=== PATIENT | female | born 1940 | race Caucasian/White ===

== ENCOUNTER 2017-02-28 07:15 | Inpatient (IN) | payer OTHER ==
[~2017-02-28] VITALS: Ht 160 cm; Wt 52.2 kg
[~2017-02-28 07:15] MED LIST: AMBIEN 5 MG TABL5 M1 PO; AMITIZA 24 MCG24 MC1 PO; ASPIR 8181 MG PO; BONIVA150 MG PO; CARAFATE1 GM/10 ML PO; GABAPENTIN 100100 MG PO; LASIX 20 MG TAB20 MG PO; LORCET PLUS 7.1 EACH PO; MACRODANTIN100 MG PO; MIRALAX17 GM PO; MS CONTIN15 MG PO; MYRBETRIQ25 MG PO; OMEPRAZOLE40 MG PO; PRINIVIL20 MG PO; PROTONIX40 M1 PO; SIMVASTATIN40 MG PO; VITAMIN D1000 UNI1 PO; ZANTAC 150MG T150 MG PO; ZOFRAN ODT4 MG DISSOLVE
[2017-02-28 07:17] VITALS: BP 152/50
[2017-02-28] MEDS ORDERED: POTASSIUM20 PO (07:24)
[2017-02-28] MEDS ORDERED: PREMARIN30 GM TOP (07:24)
[2017-02-28] MEDS ORDERED: TRIAMCINOLONE A80 G2 TOP (07:24)
[2017-02-28] MEDS ORDERED: VITAMIN D1000 UNI1 PO (07:25)
[2017-02-28] MEDS ORDERED: BISMATROL262 MG/15 PO (07:25)
[2017-02-28 07:48] LABS: URINE BILIRUBIN NEGATIVE (Negative); URINE BLOOD 2+ (Negative); URINE CLARITY SL CLOUDY; URINE COLOR YELLOW; URINE GLUCOSE-RANDOM NEGATIVE (Negative); URINE KETONES NEGATIVE (Negative); URINE PROTEIN 1+ (Negative); URINE SPECIFIC GRAVITY 1.015 (1.005-1.030); URINE UROBILINOGEN 0.2 E.U./dl (0.2-1.0)
[2017-02-28 08:02] LABS: URINE LEUKOCYTES-REFLEX 2+ (Negative); URINE NITRITE-REFLEX POSITIVE (Negative)
[2017-02-28 08:04] LABS: CASTS None Seen /LPF (None Seen); CRYSTALS None Seen /LPF (None Seen); SQUAMOUS NONE SEEN /LPF (0-3); URINE RBC 0-2 Rare /HPF (0-2); URINE WBC-REFLEX >25 Many /HPF (0-5)
[2017-02-28 08:15] LABS: ABSOLUTE BASOPHILS 0.1 thou/uL (0.0-0.2); ABSOLUTE EOSINOPHILS 0.9 thou/uL (0.0-0.7); ABSOLUTE LYMPHOCYTES 1.2 thou/uL (0.8-5.3); ABSOLUTE MONOCYTES 0.9 thou/uL (0.0-1.2); ABSOLUTE NEUTROPHILS 8.4 thou/uL (1.6-8.1); BASOPHILS 1.2 %; HEMATOCRIT 38.2 % (37.0-47.0); HEMOGLOBIN 12.2 gm/dL (12.0-15.0); LYMPHOCYTES 10.2 %; MCH 31.1 pg (26.0-34.0); MCHC 31.8 g/dL (28.0-37.0); MCV 97.7 fL (80.0-100.0); MONOCYTES 7.9 %; MPV 7.2 fl. (7.2-11.1); NUCLEATED RBCS 0 /100WBC; PLATELET COUNT* 230 thou/uL (150-400); POLYS 72.7 %; RBC 3.91 mil/uL (4.20-5.00); RDW-CV 13.1 % (10.5-14.5); WBC 11.5 thou/uL (4.0-11.0)
[2017-02-28 08:24] LABS: ANION GAP 4 mmol/L (7-16); BUN 14 mg/dL (7-18); CALCIUM 8.2 mg/dL (8.5-10.1); CHLORIDE 107 mmol/L (98-107); CO2 33 mmol/L (21-32); CREATININE 0.9 mg/dL (0.6-1.3); GLUCOSE 103 mg/dL (70-99); POTASSIUM 4.2 mmol/L (3.5-5.1); SODIUM 144 mmol/L (136-145)
[2017-02-28 08:30] LABS: ALBUMIN 3.3 g/dL (3.4-5.0); ALKALINE PHOSPHATASE 96 U/L (46-116); LIPASE 252 U/L (73-393); SGOT 15 U/L (15-37); SGPT 19 U/L (30-65); TOTAL BILIRUBIN 0.2 mg/dL (<0.1-1.0); TOTAL PROTEIN 6.4 g/dL (6.4-8.2); TROPONIN-I LEVEL <0.06 ng/mL (<0.06)
[2017-02-28 14:35] VITALS: BP 122/50
[2017-02-28 15:00] VITALS: BP 147/51
--- NOTE | 2017-02-28 17:21 | NUR ---
PATIENT ARRIVED FROM ER THIS AFTERNOON. PATIENT SETTLED TO BED. HISTORY, ASSESSMENT AND VITALS COMPLETED AND DOCUMENTED. PATIENT HAS CELLULITIS TO LEFT LOWER EXTREMITY, PICTURE IN CHART. PATIENT IS SLEEPING AT THIS TIME. BED ALARM ON. CALL LIGHT WITHIN REACH. WILL CONTINUE TO MONITOR.
[2017-02-28 20:10] VITALS: BP 140/65
[2017-03-01 00:04] VITALS: BP 148/62
--- NOTE | 2017-03-01 05:49 | NUR ---
PT SLEPT AT INTERVALS DURING THE NIGHT, BOSS IN PLACE, PT CONFUSED AT TIMES REGARDING SITUATION AND TIME. PT REORIENTED AND DISCUSSED PLAN OF CARE. PRN AND SCHEDULED PAIN MEDICATIONS GIVEN, HEATING PAD ORDERED THIS AM FOR BACK PAIN PER PT REQUEST, CALL LIGHT IN REACH, BED ALARM ON FOR SAFETY, WILL CONTINUE TO MONITOR
[2017-03-01 08:25] VITALS: BP 170/70
--- NOTE | 2017-03-01 12:12 | NUR ---
SW met with pt to complete initial assessment. SW introduced self and SW role. Pt alert and oriented; pt forgetful. Pt was initially covering her face with the sheets and blanket but uncovered her head and spoke with SW and was pleasant. Pt anticipates to be able to dc back to her [facility] in [place] upon dc. Pt has a 4 ww with a seat. Pt was concerned with getting pain medication and "gas" medication and SW relayed message to nurse who already provided medications as scheduled. Pt has a dtr, Altagracia, who is involved with pt care. SW to continue to follow to assist with safe dc planning.
--- NOTE | 2017-03-01 13:08 | EKG ---
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 : 1940 Requested By: Leandro Covington Order Number: [id number] MD: Sebastian Dunham Measurements Intervals [place] Rate: 64 P: 50 GA: 140 QRS: -27 QRSD: 91 T: 20 QT: 388 QTc: 401 Interpretive Statements Sinus rhythm Probable left atrial enlargement Borderline left axis deviation Borderline T wave abnormalities Compared to ECG 12/10/2016 11:24:44 T-wave abnormality now present Electronically Signed On 03-01-2017 13:08:19 SAFETY CONSULTANT by Sebastian Dunham [email or web address] <ELECTRONICALLY SIGNED> By: Sebastian Dunham MD, [facility] 03/01/17 1308 0745 0745 Sebastian Dunham MD, [facility] /EPI
--- NOTE | 2017-03-01 13:52 | 2DMMODE ---
[place] [address] 2 D/M-MODE ECHOCARDIOGRAM Name: ARNULFO BAUTISTA Room: [address] IN [facility]#: [id number] Admission: 02/28/17 Attend Phys: Dandy Harris Discharge: Date of : 36 Date of Service: 03/01/17 1352 Report #: [id number] THIS REPORT FOR: //name// APPROVED REPORT Study performed: 03/01/2017 11:21:55 EXAM: Comprehensive 2D, Doppler, and color-flow Echocardiogram Patient Location: In-Patient Room #: 310 Status: routine BSA: 1.71 HR: 53 bpm BP: 170/70 mmHg Other Information Study Quality: Good Indications Murmur 2D Dimensions LVEF(%): 81.98 (>50%) IVSd: 11.52 (7-11mm) LVOT Diam: 20.60 (18-24mm) LVDd: 44.55 mm PWd: 10.97 (7-11mm) Ascending Ao: 26.95 (22-36mm) LVDs: 22.04 (25-40mm) Aortic Root: 28.56 mm Martins's LVEF: 81.98 % Volumes Left Atrial Volume (Systole) LA ESV Index: 19.00 mL/m2 Aortic Valve AoV Peak Marvin.: 3.20 m/s AO Peak Gr.: 40.86 mmHg LVOT Max P.34 mmHg AO Mean Gr.: 24.80 mmHg LVOT Mean P.78 mmHg LVOT Max V: 0.91 m/s AO V2 VTI: 84.43 cm LVOT Mean V: 0.62 m/s VINI (VTI): 0.98 cm2 LVOT V1 VTI: 24.74 cm Mitral Valve E/A Ratio: 0.87 MV Decel. Time: 188.55 [place] [address] 2 D/M-MODE ECHOCARDIOGRAM Name: ARNULFO BAUTISTA Room: [address] IN .R.#: [id number] Admission: 02/28/17 Attend Phys: Dandy Harris Discharge: Date of : 36 Date of Service: 03/01/17 1352 Report #: [id number] MV E Max Marvin.: 0.94 m/s MV PHT: 54.68 ms MVA (PHT): 4.02 cm2 TDI E/Lateral E': 15.67 E/Medial E': 13.43 Medial E' Marvin.: 0.07 m/s Lateral E' Marvin.: 0.06 m/s Pulmonary Valve PV Peak Marvin.: 1.04 m/s PV Peak Gr.: 4.29 mmHg Tricuspid Valve TR Peak Gr.: 12.56 mmHg RVSP: 17.56 mmHg Left Ventricle The left ventricle is normal size. There is normal LV segmental wall motion. Moderate concentric left ventricular hypertrophy. Left ventricular systolic function is normal. The left ventricular ejection fraction is within the normal range. LVEF is >70%. Grade I - abnormal relaxation pattern. Right Ventricle The right ventricle is normal size. The right ventricular systolic function is normal. Atria Left atrium is moderately dilated. The right atrium size is normal. Aortic Valve Aortic valve is moderately calcified.Restricted leaflet motion.Appears trileaflet. No aortic regurgitation is present. Moderate aortic stenosis. Mitral Valve The mitral valve is normal in structure. There is no mitral valve regurgitation noted. No evidence of mitral valve stenosis. Tricuspid Valve The tricuspid valve is normal in structure. Trace tricuspid regurgitation. The RVSP is __17.6 mmHg. Pulmonic Valve The pulmonary valve is normal in structure. [place] [address] 2 D/M-MODE ECHOCARDIOGRAM Name: ARNULFO BAUTISTA Room: [address] IN M.R.#: [id number] Admission: 02/28/17 Attend Phys: Dandy Harris Discharge: Date of : 36 Date of Service: 03/01/17 1352 Report #: [id number] Great Vessels The aortic root is normal in size. IVC is normal in size and collapses with >50% inspiration Pericardium There is no pericardial effusion. <Conclusion> LVEF is >70%. Moderate aortic stenosis. No aortic regurgitation is present. Moderate concentric left ventricular hypertrophy. There is normal LV segmental wall motion. Left atrium is moderately dilated. <ELECTRONICALLY SIGNED> By: Sebastian Dunham MD, FACC 03/01/17 1352 1352 135 Sebastian Dunham MD, FACC /INF
[2017-03-01 15:45] VITALS: BP 172/55
--- NOTE | 2017-03-01 19:24 | NUR ---
PATIENT HAS BEEN A/O X 4, SLIGHTLY FORGETFUL AT TIMES. MEDICATED FOR GENERALIZED PAIN WITH EFFECT. SEEN BY DR OSEGUERA TODAY. BOSS PATENT AND DRAINING. CONTINUES ON IV ANTIBIOTICS AND IV FLUIDS. UP IN CHAIR THIS MORNING. PATIENT'S LEFT LOWER LEG REMAINS RED, CREAMS APPLIED AND ENCOURAGED TO ELEVATE WHILE IN BED. PATIENT'S DAUGHTER UPDATED ON PLAN OF CARE. FALL PRECAUTIONS IN PLACE. BED ALARM IN PLACE. CALL LIGHT WITHIN REACH. WILL CONTINUE WITH PLAN OF CARE.
[2017-03-02 00:34] VITALS: BP 151/51
[2017-03-02 04:18] VITALS: BP 180/77
--- NOTE | 2017-03-02 06:14 | NUR ---
PT SLEPT MOST OF SHIFT. ASSESSMENT DOCUMENTED. MEDS GIVEN PER E-MAR. IV PATENT, FLUIDS INFUSING. PT BECAME MORE CONFUSED SHIFT PROGRESSED. PAIN MEDS GIVEN PER E-MAR. NO CONCERNS AT THIS TIME, WILL CONTINUE TO MONITOR.
[2017-03-02 08:45] VITALS: BP 180/72
[2017-03-02 11:05] VITALS: BP 180/72
[2017-03-02] MEDS ORDERED: BACTRIM DS TAB1 EACH PO (13:01)
--- NOTE | 2017-03-02 13:40 | NUR ---
ORDERS RECEIVED FOR DC BACK TO [facility]. SPOKE WITH [facility], THEY WILL ACCEPT BACK AND GET PT'S MEDS FILLED. ORDERS FAXED TO HER AT [phone]. RN HAS NUMBER TO CALL REPORT. SON TO TRANSPORT
[2017-03-02] MEDS ORDERED: RIFAMPIN 300 M300 M1 PO (13:55)
--- NOTE | 2017-03-02 14:17 | NUR ---
DR. AMBRIZ NOTIFIED THAT THIS AM PATIENTS BP WAS ELEVATED AND REMAINED ELEVATED THIS AFTERNOON PRIOR TO DC. SCRIPT WRITTEN TO INCREASE LISINOPRIL. MRSA NOTED TO URINE, ABX SCRIPT GIVEN. LEG BAG TEACHING GIVEN. IV DC'D. ALL BELONGINGS SENT WITH PATIENT. REPORT CALLED TO [facility] AT [facility].
== END 2017-03-02 14:22 | DRG 603 ==
LOC: M.ERS 07:15 → M.TBA-ER 09:46 → M.3W 09:46
PROVIDERS: Emergency Medicine Emergency Medical Services; ADMIT Internal Medicine
DX: L03.116 Cellulitis of left lower limb (principal); N39.0 Urinary tract infection, site not specified; A46 Erysipelas; N81.4 Uterovaginal prolapse, unspecified; M06.9 Rheumatoid arthritis, unspecified; K59.00 Constipation, unspecified; R33.9 Retention of urine, unspecified; Z90.49 Acquired absence of other specified parts of digestive tract; Z88.2 Allergy status to sulfonamides; Z91.040 Latex allergy status

== ENCOUNTER 2017-06-17 07:16 | Inpatient (IN) | payer OTHER ==
[~2017-06-17] VITALS: Ht 160 cm; Wt 48.5 kg
[~2017-06-17 07:16] MED LIST changes: +BACTRIM DS TAB1 EACH PO; +BISMATROL262 MG/15 PO; +POTASSIUM20 PO; +PREMARIN30 GM TOP; +RIFAMPIN 300 M300 M1 PO; +TRIAMCINOLONE A80 G2 TOP
[2017-06-17 07:19] VITALS: BP 132/45
[2017-06-17] MEDS ORDERED: IBANDRONATE SO150 MG PO (07:32)
[2017-06-17] MEDS ORDERED: HYDROCODONE-AP1 EAC6 PO (07:38)
[2017-06-17] MEDS ORDERED: IMODIUM A-D2 M1 PO (07:39)
[2017-06-17 07:55] LABS: URINE BILIRUBIN NEGATIVE (Negative); URINE BLOOD 1+ (Negative); URINE CLARITY CLEAR; URINE COLOR YELLOW; URINE GLUCOSE-RANDOM NEGATIVE (Negative); URINE KETONES NEGATIVE (Negative); URINE LEUKOCYTES-REFLEX NEGATIVE (Negative); URINE NITRITE-REFLEX NEGATIVE (Negative); URINE PROTEIN TRACE (Negative); URINE SPECIFIC GRAVITY 1.025 (1.005-1.030); URINE UROBILINOGEN 0.2 E.U./dl (0.2-1.0)
[2017-06-17 08:12] LABS: BACTERIA-REFLEX None Seen /HPF (None Seen); CASTS None Seen /LPF (None Seen); CRYSTALS None Seen /LPF (None Seen); MUCUS None Seen strn/LPF (None Seen); SQUAMOUS 4-10 Moderate /LPF (0-3); URINE RBC 3-10 Few /HPF (0-2); URINE WBC-REFLEX 0-5 Rare /HPF (0-5)
[2017-06-17 08:42] LABS: HEMATOCRIT 40.1 % (37.0-47.0); HEMOGLOBIN 13.3 gm/dL (12.0-15.0); MCH 31.6 pg (26.0-34.0); MCHC 33.2 g/dL (28.0-37.0); MPV 7.3 fl. (7.2-11.1); NUCLEATED RBCS 0 /100WBC; PLATELET COUNT* 239 thou/uL (150-400); RBC 4.22 mil/uL (4.20-5.00); RDW-CV 14.3 % (10.5-14.5); WBC 19.3 thou/uL (4.0-11.0)
[2017-06-17 08:43] LABS: CALCIUM 8.7 mg/dL (8.5-10.1); CREATININE 1.3 mg/dL (0.6-1.3); POTASSIUM 4.6 mmol/L (3.5-5.1)
[2017-06-17 08:48] LABS: ALBUMIN 3.2 g/dL (3.4-5.0); TOTAL BILIRUBIN 0.4 mg/dL (<0.1-1.0); TOTAL PROTEIN 6.5 g/dL (6.4-8.2)
[2017-06-17 09:12] LABS: ABSOLUTE LYMPHOCYTES 1.2 thou/uL (0.8-5.3); ABSOLUTE MONOCYTES 0.2 thou/uL (0.0-1.2); ABSOLUTE NEUTROPHILS 17.9 thou/uL (1.6-8.1); PLATELET ESTIMATE ADEQUATE
[2017-06-17 14:14] VITALS: BP 107/44
[2017-06-17 14:40] VITALS: BP 123/40
[2017-06-17] MEDS ORDERED: AMITIZA 24 MCG24 MC1 PO (15:55)
[2017-06-18 00:29] VITALS: BP 107/53
[2017-06-18 01:05] LABS: URINE BILIRUBIN NEGATIVE (Negative); URINE BLOOD 1+ (Negative); URINE CLARITY CLEAR; URINE COLOR YELLOW; URINE GLUCOSE-RANDOM NEGATIVE (Negative); URINE KETONES NEGATIVE (Negative); URINE LEUKOCYTES-REFLEX NEGATIVE (Negative); URINE PROTEIN NEGATIVE (Negative); URINE SPECIFIC GRAVITY 1.025 (1.005-1.030); URINE UROBILINOGEN 0.2 E.U./dl (0.2-1.0)
[2017-06-18 01:06] LABS: URINE NITRITE-REFLEX POSITIVE (Negative)
[2017-06-18 01:51] LABS: BACTERIA-REFLEX >30 Many /HPF (None Seen); CASTS None Seen /LPF (None Seen); MUCUS 4-6 Moderate strn/LPF (None Seen); SQUAMOUS 0-3 Few /LPF (0-3); URINE RBC 3-10 Few /HPF (0-2); URINE WBC-REFLEX 6-15 Few /HPF (0-5)
[2017-06-18 01:52] LABS: CRYSTALS None Seen /LPF (None Seen)
[2017-06-18 03:16] VITALS: BP 107/53
[2017-06-18 04:24] LABS: HEMATOCRIT 38.8 % (37.0-47.0); HEMOGLOBIN 12.6 gm/dL (12.0-15.0); MCH 31.2 pg (26.0-34.0); MCHC 32.5 g/dL (28.0-37.0); MPV 7.2 fl. (7.2-11.1); RBC 4.04 mil/uL (4.20-5.00); RDW-CV 14.6 % (10.5-14.5)
[2017-06-18 04:50] LABS: ALBUMIN 2.9 g/dL (3.4-5.0); CALCIUM 8.6 mg/dL (8.5-10.1); CREATININE 0.8 mg/dL (0.6-1.3); MAGNESIUM 2.2 mg/dL (1.8-2.4); POTASSIUM 3.9 mmol/L (3.5-5.1); TOTAL BILIRUBIN 0.4 mg/dL (<0.1-1.0)
[2017-06-18 06:12] VITALS: BP 143/61
[2017-06-18 16:00] VITALS: BP 111/47
--- NOTE | 2017-06-18 17:21 | EKG ---
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: Hillary VENTURA : 1940 Requested By: Ajit Valladares Order Number: [id number] MD: Braulio Turk Measurements Intervals [place] Rate: 81 P: 42 [place]: 133 QRS: -35 QRSD: 84 T: 88 QT: 355 QTc: 412 Interpretive Statements Sinus rhythm Left axis deviation Abnormal R-wave progression, late transition Borderline T wave abnormalities Compared to ECG 02/28/2017 07:45:54 No significant changes Electronically Signed On 06-18-2017 17:21:05 CDT by Braulio Turk [email or web address] <ELECTRONICALLY SIGNED> By: Braulio Turk MD, FACC 06/18/17 1721 0744 0744 Braulio Turk MD, FAC /EPI
[2017-06-19 00:02] VITALS: BP 102/57
[2017-06-19 03:52] LABS: HEMATOCRIT 34.2 % (37.0-47.0); HEMOGLOBIN 11.1 gm/dL (12.0-15.0); MCH 31.4 pg (26.0-34.0); MCHC 32.4 g/dL (28.0-37.0); MCV 96.8 fL (80.0-100.0); MPV 7.1 fl. (7.2-11.1); RBC 3.53 mil/uL (4.20-5.00); RDW-CV 14.3 % (10.5-14.5); WBC 16.7 thou/uL (4.0-11.0)
[2017-06-19 04:08] LABS: CALCIUM 8.3 mg/dL (8.5-10.1); CREATININE 0.8 mg/dL (0.6-1.3); MAGNESIUM 2.1 mg/dL (1.8-2.4); POTASSIUM 3.8 mmol/L (3.5-5.1)
[2017-06-19 07:50] VITALS: BP 174/89
[2017-06-19 16:00] VITALS: BP 146/63
[2017-06-19 23:42] VITALS: BP 151/59
[2017-06-20 00:19] VITALS: BP 141/84
[2017-06-20 04:16] LABS: HEMATOCRIT 32.9 % (37.0-47.0); HEMOGLOBIN 10.8 gm/dL (12.0-15.0); MCH 31.2 pg (26.0-34.0); MCHC 32.7 g/dL (28.0-37.0); MCV 95.2 fL (80.0-100.0); MPV 7.1 fl. (7.2-11.1); RBC 3.46 mil/uL (4.20-5.00); RDW-CV 14.1 % (10.5-14.5); WBC 9.8 thou/uL (4.0-11.0)
[2017-06-20 04:39] LABS: CALCIUM 8.4 mg/dL (8.5-10.1); CREATININE 0.8 mg/dL (0.6-1.3); MAGNESIUM 1.9 mg/dL (1.8-2.4); POTASSIUM 3.4 mmol/L (3.5-5.1)
[2017-06-20 09:00] VITALS: BP 153/58
--- NOTE | 2017-06-20 15:01 | CON ---
[address] [address] CONSULTATION Name: ARNULFO BAUTISTA Room: [address]#: [id number] Admission: 06/17/17 Attend Phys: Nile Portillo, Discharge: Date of : 36 Report #: [id number] THIS REPORT FOR: //name// CC: Ji Portillo DATE OF SERVICE: 06/18/2017 REQUESTING PHYSICIAN: Dr. Nile Portillo. HISTORY OF PRESENT ILLNESS: This is a 76-year-old female with multiple medical problems who lives in a retirement. The patient has been having diffuse abdominal pain and diarrhea for 5-6 days. She also has been complaining of pain in the arms and hands. She denies any upper GI symptoms as she denies nausea, vomiting, dyspepsia, GERD. She also denies any hematochezia or melena. PAST MEDICAL HISTORY: Significant for history of hypertension, dyslipidemia, carotid artery stenosis, GERD, osteoporosis, DJD, depression, chronic constipation, acute cystitis. ALLERGIES: SIGNIFICANT TO SULFA, BETA BLOCKERS AND LATEX. MEDICATIONS: Please refer to hospital MAR. SOCIAL HISTORY: The patient lives at the retirement. Currently, denies any alcohol or tobacco use. FAMILY HISTORY: Noncontributory. PHYSICAL EXAMINATION: VITAL SIGNS: Reveals blood pressure of 143/61, respirations 17, pulse 91, temperature of 100.6. LUNGS: Decreased breath sounds at the bases, but clear otherwise. CARDIOVASCULAR: Regular rate. ABDOMEN: Soft, tender to palpation in the left lower and right lower quadrant. Bowel sounds are positive. NEUROLOGIC: The patient is alert, oriented and able to answer questions. LABORATORY DATA: Reveal sodium of 142, potassium 3.9, BUN is 20, creatinine 0.8. Lipase is 67. Liver function tests are all within normal limit. Alkaline phosphatase is mildly elevated to 120. WBC is 21,000, hemoglobin 12.6 with platelets of 210. The patient also has evidence of [place] [address] CONSULTATION Name: ARNULFO BAUTISTA Room: [address] IN [facility]#: [id number] Admission: 06/17/17 Attend Phys: Nile Portillo, Discharge: Date of : 38 Report #: [id number] IMAGING: CT of abdomen and pelvis was obtained on admission. This is significant for pancolitis with diffuse circumferential mural thickening and mild pericolonic inflammation limited to the pericecal region. There is also a right adnexal cyst measuring 3.9 x 4.8 cm. There is a small right indirect inguinal hernia, which is fat containing. ASSESSMENT AND PLAN: The patient with leukocytosis, diarrhea x 5-6 days and abdominal pain who has imaging suggestive of pancolitis. She has been started on vancomycin and ciprofloxacin. C. diff status pending. We will consider colonoscopy with biopsies of the colonic mucosa to find etiology of her symptoms. The patient is agreeable with plan. <ELECTRONICALLY SIGNED> By: Ari Marcial MD 06/20/17 1501 0954 [id number] Marcial MD /nt
[2017-06-20 16:00] VITALS: BP 188/68
[2017-06-21 00:19] VITALS: BP 183/77
[2017-06-21 08:45] VITALS: BP 186/73
[2017-06-21 15:50] VITALS: BP 152/89
[2017-06-21 21:15] VITALS: BP 168/65
[2017-06-22 08:05] VITALS: BP 146/78
--- NOTE | 2017-06-22 11:50 | CON ---
[address] [address] CONSULTATION Name: ARNULFO BAUTISTA Room: [address] IN [place]risten.#: [id number] Admission: 06/17/17 Attend Phys: Nile Portillo, Discharge: Date of : 36 Report #: [id number] THIS REPORT FOR: //name// CC: Ji Portillo DATE OF SERVICE: 06/21/2017 INFECTIOUS DISEASE CONSULTATION ATTENDING PHYSICIAN: Dr. Monteiro. REASON FOR EVALUATION: C. diff colitis. HISTORY OF PRESENT ILLNESS: Chart reviewed, patient examined. This is a 76-year-old with history of vasculopathy admitted with diarrhea. She noted roughly 8 days ago, it started somewhat abruptly, not had previous similar type episode, was evaluated. Ultimately on admission, C. diff was collected, which was confirmed to be positive. Imaging suggested pancolitis. She was started on broad-spectrum therapy including ciprofloxacin and metronidazole as well as oral vancomycin. Stools have improved somewhat. She now has significant amount of abdominal pain related at this point, not had fevers. Appetite has been fair. She is not certain of any weight loss. She does admit to have sort of chronic generalized joint pain. She notes she has rheumatism, has become less active leading to more stiffness and pain. ALLERGIES: SULFA AND LATEX. CURRENT MEDICATIONS: Include hydrocodone, lactobacillus, saccharomyces, ondansetron, famotidine, metronidazole, ciprofloxacin, Zolpidem, mirabegron, aspirin, lisinopril, oral vancomycin, and fentanyl. PAST MEDICAL HISTORY: History of chronic neck pain, hyperlipidemia, carotid artery stenosis, chronic constipation, edema, degenerative joint disease, depression, hypertension, reflux, osteoporosis. SOCIAL HISTORY: Nonsmoker, no ethanol. FAMILY HISTORY: Noncontributory. REVIEW OF SYSTEMS: As above. PHYSICAL EXAMINATION: GENERAL: She is pleasant, alert, cooperative, appears somewhat chronically ill, undernourished, [id number] distress. VITAL SIGNS: Temperature 98.4, pulse 73, respirations 18, [place] [address] CONSULTATION Name: ARNULFO BAUTISTA Room: [address]#: [id number] Admission: 06/17/17 Attend Phys: Nile Portillo, Discharge: Date of : 36 Report #: [id number] 186/73. SKIN: Warm, dry. HEENT: Unremarkable. NECK: Supple. LUNGS: Diminished breath sounds. HEART: Regular. She does have systolic murmur. ABDOMEN: Soft, nontender, nondistended. There are no peritoneal signs. GENITOURINARY: Deferred. RECTAL: Deferred. LABORATORY DATA: Urine culture, less than 10,000 gram-negative rods for his E. coli, it is generally susceptible. Urinalysis on admission was collected, 6-15 white cells, greater than 30 bacteria. Initial CBC: White count 21.0, H and H 12.6 and 38.8, platelets of 210. Repeat, white count of 9.8. Cryptosporidium, majority of antigens were not detected. Stool for enteric pathogen negative thus far including antigens. C. diff was positive via toxin assay gene, LILIA. Electrolytes: Sodium 142, potassium 3.9, chloride 108, bicarbonate 21, BUN and creatinine 21 and 0.8, albumin 2.9, total protein 6.0. Estimated GFR 69. LFTs unremarkable. ASSESSMENT: Clostridium difficile colitis. I think it is reasonable to discontinue the Cipro and Flagyl, we may add tetracycline to cover the urinary tract, better results in terms of disrupting the nany. Agree with probiotic, see how she does clinically. Plan on utilizing a tapering dose, optimize her nutritional status, will be mindful of risk of nosocomial-related infectious complications. <ELECTRONICALLY SIGNED> By: Catrachito Carlson MD 06/22/17 1150 1408 1938Joterese Carlson MD /nt
[2017-06-22 14:16] LABS: HEMATOCRIT 35.2 % (37.0-47.0); HEMOGLOBIN 11.8 gm/dL (12.0-15.0); MCH 31.8 pg (26.0-34.0); MCHC 33.5 g/dL (28.0-37.0); MPV 6.3 fl. (7.2-11.1); NUCLEATED RBCS 0 /100WBC; PLATELET COUNT* 251 thou/uL (150-400); RDW-CV 14.1 % (10.5-14.5)
[2017-06-22 14:24] LABS: CALCIUM 8.5 mg/dL (8.5-10.1); CREATININE 0.9 mg/dL (0.6-1.3); MAGNESIUM 1.6 mg/dL (1.8-2.4); POTASSIUM 3.8 mmol/L (3.5-5.1)
[2017-06-22 14:53] LABS: ABSOLUTE EOSINOPHILS 0.4 thou/uL (0.0-0.7); ABSOLUTE LYMPHOCYTES 1.7 thou/uL (0.8-5.3); ABSOLUTE MONOCYTES 0.5 thou/uL (0.0-1.2); ABSOLUTE NEUTROPHILS 5.4 thou/uL (1.6-8.1); PLATELET ESTIMATE ADEQUATE
[2017-06-22 18:04] VITALS: BP 186/64
[2017-06-23 00:05] VITALS: BP 179/85
[2017-06-23 08:15] LABS: URINE BILIRUBIN NEGATIVE (Negative); URINE BLOOD TRACE (Negative); URINE CLARITY CLEAR; URINE COLOR YELLOW; URINE GLUCOSE-RANDOM NEGATIVE (Negative); URINE KETONES NEGATIVE (Negative); URINE LEUKOCYTES-REFLEX NEGATIVE (Negative); URINE NITRITE-REFLEX NEGATIVE (Negative); URINE PROTEIN NEGATIVE (Negative); URINE UROBILINOGEN 0.2 E.U./dl (0.2-1.0)
[2017-06-23 08:30] VITALS: BP 169/62
[2017-06-23 12:55] VITALS: BP 169/62
[2017-06-23] MEDS ORDERED: VANCOMYCIN125 MG/2.1 PO (15:27)
[2017-06-23 15:31] VITALS: BP 169/62
[2017-06-23 16:19] VITALS: BP 169/62
== END 2017-06-23 16:23 | disposition home or self-care (01) | DRG 372 ==
LOC: M.ERS 07:16 → M.3W 09:50 → M.TBA-ER 09:50 → M.3W 14:38
PROVIDERS: Emergency Medicine; Internal Medicine; Specialist; ADMIT Family Medicine
PROC: 0DBE8ZX Excision of Large Intestine, Via Natural or Artificial Opening Endoscopic, Diagnostic (ICD-10-PCS; principal; 2017-06-18)
DX: A04.72 Enterocolitis due to Clostridium difficile, not specified as recurrent (principal); N39.0 Urinary tract infection, site not specified; E78.5 Hyperlipidemia, unspecified; M19.90 Unspecified osteoarthritis, unspecified site; F32.9 Major depressive disorder, single episode, unspecified; I10 Essential (primary) hypertension; M41.86 Other forms of scoliosis, lumbar region; K64.8 Other hemorrhoids; E87.8 Other disorders of electrolyte and fluid balance, not elsewhere classified; K21.9 Gastro-esophageal reflux disease without esophagitis; M81.0 Age-related osteoporosis without current pathological fracture; Z79.82 Long term (current) use of aspirin; Z79.899 Other long term (current) drug therapy; Z88.2 Allergy status to sulfonamides; Z88.8 Allergy status to other drugs, medicaments and biological substances; Z91.040 Latex allergy status

== ENCOUNTER 2017-08-22 12:52 | Emergency (ER) | payer OTHER ==
[~2017-08-22] VITALS: Ht 160 cm; Wt 54.4 kg
[~2017-08-22 12:52] MED LIST changes: +HYDROCODONE-AP1 EAC6 PO; +IBANDRONATE SO150 MG PO; +IMODIUM A-D2 M1 PO; +VANCOMYCIN125 MG/2.1 PO
[2017-08-22] MEDS ORDERED: HYDROCODONE-AP1 EAC6 PO (13:07)
[2017-08-22 13:17] LABS: URINE BILIRUBIN NEGATIVE (Negative); URINE BLOOD 3+ (Negative); URINE CLARITY CLEAR; URINE COLOR YELLOW; URINE GLUCOSE-RANDOM NEGATIVE (Negative); URINE KETONES NEGATIVE (Negative); URINE LEUKOCYTES-REFLEX NEGATIVE (Negative); URINE NITRITE-REFLEX NEGATIVE (Negative); URINE PROTEIN 2+ (Negative); URINE SPECIFIC GRAVITY >= 1.030 (1.005-1.030); URINE UROBILINOGEN 0.2 E.U./dl (0.2-1.0)
[2017-08-22 13:21] LABS: HEMATOCRIT 45.3 % (37.0-47.0); HEMOGLOBIN 14.8 gm/dL (12.0-15.0); MCH 30.3 pg (26.0-34.0); MCHC 32.6 g/dL (28.0-37.0); MCV 92.8 fL (80.0-100.0); MPV 7.3 fl. (7.2-11.1); NUCLEATED RBCS 0 /100WBC; PLATELET COUNT* 349 thou/uL (150-400); RBC 4.89 mil/uL (4.20-5.00); RDW-CV 13.2 % (10.5-14.5); WBC 11.9 thou/uL (4.0-11.0)
[2017-08-22 13:26] LABS: BACTERIA-REFLEX 1-9 Few /HPF (None Seen); MUCUS 4-6 Moderate strn/LPF (None Seen); SQUAMOUS 4-10 Moderate /LPF (0-3); URINE RBC 3-10 Few /HPF (0-2); URINE WBC-REFLEX 0-5 Rare /HPF (0-5)
[2017-08-22 13:27] LABS: CRYSTALS None Seen /LPF (None Seen); HYALINE CASTS 0-3 Few /LPF (None Seen)
[2017-08-22 13:34] LABS: ANION GAP 15 mmol/L (7-16); BUN 18 mg/dL (7-18); CHLORIDE 110 mmol/L (98-107); CO2 18 mmol/L (21-32); CREATININE 0.9 mg/dL (0.6-1.3); GLUCOSE 131 mg/dL (70-99); POTASSIUM 3.9 mmol/L (3.5-5.1); SODIUM 143 mmol/L (136-145)
[2017-08-22 13:41] LABS: ALBUMIN 3.9 g/dL (3.4-5.0); ALKALINE PHOSPHATASE 130 U/L (46-116); LIPASE 422 U/L (73-393); SGOT 22 U/L (15-37); SGPT 21 U/L (30-65); TOTAL BILIRUBIN 0.2 mg/dL (<0.1-1.0); TOTAL PROTEIN 8.5 g/dL (6.4-8.2); TROPONIN-I LEVEL <0.06 ng/mL (<0.06)
[2017-08-22 15:11] LABS: ABSOLUTE LYMPHOCYTES 1.5 thou/uL (0.8-5.3); ABSOLUTE MONOCYTES 0.4 thou/uL (0.0-1.2)
[2017-08-22 15:12] LABS: PLATELET ESTIMATE ADEQUATE; POIKILOCYTOSIS Occasional
--- NOTE | 2017-08-22 16:02 | EKG ---
[place] [address] ELECTROCARDIOGRAM REPORT Name: ARNULFO BAUTISTA Room: [facility]#: [id number] Admission: 08/22/17 Attend Phys: Discharge: Date of : 36 Report #: [id number] THIS REPORT FOR: //name// [facility] ED Test Date: 2017-08-22 Test Time: 13:25:40 Pat Name: ARNULFO BAUTISTA Department: Room: Gender: F Erp Developer: ANTONIO : 1940 Requested By: Dione Banda Order Number: [id number] MD: Braulio Turk Measurements Intervals [place] Rate: 78 P: 46 [place]: 130 QRS: -30 QRSD: 85 T: 55 QT: 376 QTc: 429 Interpretive Statements Sinus rhythm Possible left atrial enlargement Left axis deviation Abnormal R-wave progression, early transition Baseline wander in lead(s) V1 Compared to ECG 06/17/2017 07:44:33 T-wave abnormality no longer present Electronically Signed On 08-22-2017 16:02:42 CDT by Braulio Turk [email or web address] <ELECTRONICALLY SIGNED> By: Braulio Turk MD, FACC 08/22/17 1602 1325 1325 Braulio Turk MD, [facility] /EPI
[2017-08-22 17:22] VITALS: BP 167/75
== END 2017-08-22 17:18 | disposition short-term general hospital (02) ==
LOC: M.ERS 12:52
PROVIDERS: Physician Assistant
DX: R10.30 Lower abdominal pain, unspecified (principal); R19.7 Diarrhea, unspecified; R11.0 Nausea; S22.32XA Fracture of one rib, left side, initial encounter for closed fracture; Z90.89 Acquired absence of other organs; G89.29 Other chronic pain; M54.2 Cervicalgia; M54.9 Dorsalgia, unspecified; F32.9 Major depressive disorder, single episode, unspecified; I10 Essential (primary) hypertension; K21.9 Gastro-esophageal reflux disease without esophagitis; M81.0 Age-related osteoporosis without current pathological fracture; K59.09 Other constipation; Z91.040 Latex allergy status; Z88.2 Allergy status to sulfonamides; Z88.8 Allergy status to other drugs, medicaments and biological substances; X58.XXXA Exposure to other specified factors, initial encounter; Y93.89 Activity, other specified; Y92.89 Other specified places as the place of occurrence of the external cause; Y99.8 Other external cause status